=== PATIENT | male | born 1960 | race Caucasian/White ===

== ENCOUNTER 2020-11-21 16:20 | Inpatient (IN) | payer BC, OTHER ==
[~2020-11-21] VITALS: Ht 175.3 cm; Wt 81.8 kg
[2020-11-21] MEDS ORDERED: iohexol 300mg/ml 100ml inj. ONE (20:25)
[2020-11-21 20:33] LABS: BASOPHILS % (AUTO) 0.5 % (0-1); EOSINOPHILS # (AUTO) 0.1 X10'3 (0-0.9); EOSINOPHILS % (AUTO) 1.5 % (0-6); HEMATOCRIT 39.4 % (42.0-52.0); HEMOGLOBIN 13.6 g/dl (14.0-17.9); LYMPHOCYTES # (AUTO) 1.1 X10'3 (1.1-4.8); LYMPHOCYTES % (AUTO) 16.7 % (21-51); MEAN CORPUSCULAR HEMOGLOBIN 34.9 PG (27.0-31.0); MEAN CORPUSCULAR HGB CONC 34.4 g/dL (33.0-36.5); MEAN CORPUSCULAR VOLUME 101.3 FL (78-98); MONOCYTES % (AUTO) 14.7 % (2-12); NEUTROPHILS # (AUTO) 4.3 X10'3 (1.8-7.7); NEUTROPHILS % (AUTO) 66.6 % (42-75); PLATELET COUNT 237 X10'3 (140-440); RED BLOOD COUNT 3.89 X10'6 (4.70-6.10); RED CELL DISTRIBUTION WIDTH 12.9 % (11.5-14.5); WHITE BLOOD COUNT 6.5 X10'3 (4.5-11.0)
[2020-11-21 20:43] LABS: CLARITY,URINE SLIGHTLY CLOUDY (Clear); COLOR,URINE AMBER (Yellow); GLUCOSE, URINE NEGATIVE (Neg); KETONES,URINE NEGATIVE (Neg); LEUKOCYTE ESTERASE ,URINE NEGATIVE (Neg); NITRITES, URINE NEGATIVE (Neg); OCCULT BLOOD,URINE SMALL (Neg); PROTEIN,URINE TRACE mg/dl (Neg); UROBILINOGEN,URINE 0.2 E.U/dL (0.2-1.0)
[2020-11-21 20:49] LABS: PARTIAL THROMBOPLASTIN TIME 30 SECONDS (22-32)
[2020-11-21 20:51] LABS: ALANINE AMINOTRANSFERASE 482 U/L (12-78); ALBUMIN 3.1 G/DL (3.4-5.0); ALKALINE PHOSPHATASE 516 IU/L (46-116); ANION GAP 11 (8-16); ASPARTATE AMINO TRANSFERASE 256 U/L (10-37); BILIRUBIN,TOTAL 12.6 MG/DL (0.1-1.0); BLOOD UREA NITROGEN 11 MG/DL (7-18); BUN/CREATININE RATIO 13.3 (5.4-32.0); CALCIUM 8.9 MG/DL (8.5-10.1); CHLORIDE 93 MMOL/L (99-107); CREATININE 0.83 MG/DL (0.60-1.10); GLUCOSE 107 MG/DL (70-104); SODIUM 129 MMOL/L (135-145); TOTAL CARBON DIOXIDE 24.8 MMOL/L (24-32); eGFR > 90 ML/MIN
[2020-11-21 20:54] LABS: ALBUMIN/GLOBULIN RATIO 0.7 (1.1-1.5); POTASSIUM 3.8 MMOL/L (3.5-5.1); TOTAL PROTEIN 7.7 G/DL (6.4-8.2)
[2020-11-21] MEDS ORDERED: temazepam 15mg capsule PO PRN (21:00)
[2020-11-21 21:20] LABS: BACTERIA,URINE NONE SEEN /HPF (Neg); RBC,URINE 0-2 /HPF (0-2); SQUAMOUS EPITHELIAL CELL,UR FEW /LPF (FEW); UA COLLECTION TYPE VOIDED; WBC,URINE NONE SEEN /HPF (0-4)
[2020-11-21 21:26] LABS: LIPASE 7096 U/L (73-393)
[2020-11-21] MEDS ORDERED: morphine 2 MG/ML inj. syringe IV PRN ×2 (22:20)
[2020-11-21] MEDS ORDERED: acetaminophen 325mg tablet PO PRN ×2 (22:20)
[2020-11-21] MEDS ORDERED: ondansetron/PF 4mg/2ml inj IV PRN (22:20)
[2020-11-21] MEDS ORDERED: magnesium hydroxide 30ml (MOM) UD suspension PO PRN (22:20)
[2020-11-21] MEDS ORDERED: cloNIDine 0.1 MG/24 HOUR patch (7 day patch) TD SCH (22:20)
[2020-11-21] MEDS ORDERED: mag hydrox/Alum hydrox/simeth 30ml oral suspension PO PRN (22:20)
[2020-11-21] MEDS ORDERED: dextrose 50%-water 50ml dispensing syringe IV PRN (22:20)
[2020-11-21] MEDS ORDERED: ondansetron 4mg rapidly disintigrating tab PO PRN (22:20)
[2020-11-21] MEDS ORDERED: HYDROmorphone inj. 0.5 MG/0.5 ML DISP.SYRIN IV PRN (22:20)
[2020-11-21] MEDS ORDERED: diphenhydrAMINE 50 mg/ml inj IV PRN (22:20)
[2020-11-21] MEDS ORDERED: bisacodyl 10mg suppository rectal RC PRN (22:20)
[2020-11-21] MEDS ORDERED: HYDROcodone/acetaminophen 5mg/325mg tablet PO PRN (22:20)
[2020-11-21] MEDS ORDERED: LORazepam 2 mg/ml vial IV PRN (22:20)
[2020-11-21] MEDS ORDERED: acetaminophen 650mg rectal suppository RC PRN (22:20)
[2020-11-21] MEDS ORDERED: haloperidol 5mg tablet PO PRN (22:20)
[2020-11-21] MEDS ORDERED: diphenhydrAMINE 25mg capsule PO PRN (22:20)
[2020-11-21] MEDS ORDERED: haloperidol lactate 5mg/ml inj IM PRN (22:20)
[2020-11-21 22:40] LABS: HEMOGLOBIN A1C 5.1 % (4.5-6.2)
[2020-11-21 22:48] LABS: CREATINE KINASE 103 U/L (39-308); ETHANOL < 0.010 GM/DL (0.0-0.010); MAGNESIUM 1.8 MG/DL (1.5-2.4)
[2020-11-21 22:55] LABS: PHOSPHORUS 2.8 MG/DL (2.3-4.5)
[2020-11-21] MEDS: dextrose 5%-1/2 normal saline 1,000 ML IV SCH (23:27)
[2020-11-21 23:43] LABS: URINE AMPHETAMINE SCREEN NEGATIVE (Neg); URINE BARBITUATE SCREEN NEGATIVE (Neg); URINE BENZODIAZEPINES SCREEN NEGATIVE (Neg); URINE CANNABINOID SCREEN POSITIVE (Neg); URINE COCAINE SCREEN NEGATIVE (Neg); URINE METHADONE SCREEN NEGATIVE (Neg); URINE OPIATE SCREEN NEGATIVE (Neg); URINE PHENCYCLIDINE SCREEN NEGATIVE (Neg)
[2020-11-22 02:14] LABS: NEUTROPHILS % (MANUAL) 70 % (42-75); TOTAL CELLS COUNTED 100
[2020-11-22 02:15] LABS: BANDS% (MANUAL) 2 % (0-10); EOSINOPHILS % (MANUAL) 3 % (0-6); LYMPHOCYTES % (MANUAL) 14 % (21-51); METAMYLEOCYTES% (MANUAL) 1 % (0-0); MONOCYTES % (MANUAL) 10 % (2-12); PLATELET ESTIMATE NORMAL
[2020-11-22] MEDS: docusate sod 100mg capsule PO SCH ×2 (08:00→20:00)
[2020-11-22] MEDS: nicotine 21mg patch - 24 hr TD SCH (08:00)
[2020-11-22] MEDS: pantoprazole 40mg Tablet.DR PO SCH (08:04)
[2020-11-22] MEDS: heparin, porcine 5000 units/ml vial SQ SCH ×2 (08:04→20:00)
[2020-11-22 08:16] LABS: ABSOLUTE RETICS # 39700 /CUMM (23000-93000); BASOPHILS % (AUTO) 0.4 % (0-1); EOSINOPHILS # (AUTO) 0.1 X10'3 (0-0.9); EOSINOPHILS % (AUTO) 2.2 % (0-6); HEMOGLOBIN 13.7 g/dl (14.0-17.9); LYMPHOCYTES # (AUTO) 1.4 X10'3 (1.1-4.8); LYMPHOCYTES % (AUTO) 23.1 % (21-51); MEAN CORPUSCULAR HEMOGLOBIN 35.4 PG (27.0-31.0); MEAN CORPUSCULAR HGB CONC 35.1 g/dL (33.0-36.5); MEAN CORPUSCULAR VOLUME 100.7 FL (78-98); MEAN PLATELET VOLUME 7.5 FL (7.4-10.4); MONOCYTES # (AUTO) 0.8 X10'3 (0-0.9); MONOCYTES % (AUTO) 12.5 % (2-12); NEUTROPHILS # (AUTO) 3.7 X10'3 (1.8-7.7); NEUTROPHILS % (AUTO) 61.8 % (42-75); PLATELET COUNT 264 X10'3 (140-440); RED BLOOD COUNT 3.87 X10'6 (4.70-6.10); RED CELL DISTRIBUTION WIDTH 12.9 % (11.5-14.5); WHITE BLOOD COUNT 6.1 X10'3 (4.5-11.0)
[2020-11-22] MEDS: dextrose 5%-1/2 normal saline 1,000 ML IV SCH ×2 (08:20→18:20)
[2020-11-22 09:10] LABS: ALANINE AMINOTRANSFERASE 471 U/L (12-78); ALKALINE PHOSPHATASE 512 IU/L (46-116); ANION GAP 11 (8-16); ASPARTATE AMINO TRANSFERASE 258 U/L (10-37); BILIRUBIN,TOTAL 13.8 MG/DL (0.1-1.0); BLOOD UREA NITROGEN 8 MG/DL (7-18); BUN/CREATININE RATIO 11.8 (5.4-32.0); CALCIUM 8.6 MG/DL (8.5-10.1); CHLORIDE 99 MMOL/L (99-107); CREATININE 0.68 MG/DL (0.60-1.10); GLUCOSE 114 MG/DL (70-104); SODIUM 134 MMOL/L (135-145); TOTAL CARBON DIOXIDE 24.1 MMOL/L (24-32); eGFR > 90 ML/MIN
[2020-11-22] MEDS: folic acid 1mg/0.2ml inj IV SCH (09:10)
[2020-11-22] MEDS: thiamine inj. 100 MG in normal saline 100ml IV soln 100 ML IV SCH ×2 (09:10→10:00)
[2020-11-22 09:19] LABS: ALBUMIN/GLOBULIN RATIO 0.7 (1.1-1.5); C-REACTIVE PROTEIN 5.98 MG/DL (0.0-0.5); CHOLESTEROL 240 MG/DL (0-200); HDL CHOLESTEROL 10 MG/DL (35-60); LACTATE DEHYDROGENASE 215 U/L (85-227); LDL CHOLESTEROL 188 MG/DL (50-100); POTASSIUM 3.6 MMOL/L (3.5-5.1); TOTAL PROTEIN 7.3 G/DL (6.4-8.2); TRIGLYCERIDES 219 MG/DL (20-135)
[2020-11-22] MEDS ORDERED: folic acid 1mg/0.2ml inj IV ONE (11:25)
[2020-11-22] MEDS ORDERED: ONDA8TAB13 PO (12:55)
[2020-11-22] MEDS ORDERED: OMEP40CA21 PO (12:55)
[2020-11-22] MEDS ORDERED: MULT-384 PO (12:55)
[2020-11-22] MEDS ORDERED: ATEN25TA PO (12:55)
[2020-11-22] MEDS ORDERED: AMLO-93 PO (12:55)
[2020-11-22] MEDS ORDERED: ATEN-169 PO (13:57)
--- NOTE | 2020-11-22 20:00 | NUR ---
Patient in room PCU 3015. I have received report from ER and had the opportunity to ask questions and assume patient care. pt to unit on [facility] walked to bed
[2020-11-22 20:05] VITALS: BP 139/92
[2020-11-22 22:00] VITALS: BP 142/85
[2020-11-23 02:00] VITALS: BP 140/87
[2020-11-23] MEDS: dextrose 5%-1/2 normal saline 1,000 ML IV SCH ×2 (04:20→13:09)
[2020-11-23 06:00] VITALS: BP 129/75
--- NOTE | 2020-11-23 06:15 | NUR ---
Problems reprioritized. Patient report given, questions answered & plan of care reviewed with JAQUELINE fernandes.
[2020-11-23 06:20] LABS: EOSINOPHILS # (AUTO) 0.1 X10'3 (0-0.9); EOSINOPHILS % (AUTO) 3.3 % (0-6); HEMATOCRIT 37.2 % (42.0-52.0); LYMPHOCYTES # (AUTO) 1.3 X10'3 (1.1-4.8); MEAN CORPUSCULAR HEMOGLOBIN 35.3 PG (27.0-31.0); MEAN CORPUSCULAR HGB CONC 34.9 g/dL (33.0-36.5); MEAN CORPUSCULAR VOLUME 101.2 FL (78-98); MEAN PLATELET VOLUME 7.8 FL (7.4-10.4); MONOCYTES # (AUTO) 0.6 X10'3 (0-0.9); MONOCYTES % (AUTO) 14.7 % (2-12); NEUTROPHILS # (AUTO) 2.3 X10'3 (1.8-7.7); PLATELET COUNT 254 X10'3 (140-440); RED BLOOD COUNT 3.67 X10'6 (4.70-6.10); RED CELL DISTRIBUTION WIDTH 12.7 % (11.5-14.5); WHITE BLOOD COUNT 4.4 X10'3 (4.5-11.0)
[2020-11-23 06:47] LABS: ALANINE AMINOTRANSFERASE 450 U/L (12-78); ALBUMIN 2.6 G/DL (3.4-5.0); ALBUMIN/GLOBULIN RATIO 0.6 (1.1-1.5); ALKALINE PHOSPHATASE 472 IU/L (46-116); ANION GAP 11 (8-16); ASPARTATE AMINO TRANSFERASE 229 U/L (10-37); BILIRUBIN,TOTAL 14.4 MG/DL (0.1-1.0); BLOOD UREA NITROGEN 7 MG/DL (7-18); BUN/CREATININE RATIO 10.4 (5.4-32.0); CALCIUM 8.7 MG/DL (8.5-10.1); CHLORIDE 102 MMOL/L (99-107); CREATININE 0.67 MG/DL (0.60-1.10); GLUCOSE 116 MG/DL (70-104); POTASSIUM 3.6 MMOL/L (3.5-5.1); SODIUM 137 MMOL/L (135-145); TOTAL CARBON DIOXIDE 23.6 MMOL/L (24-32); TOTAL PROTEIN 6.7 G/DL (6.4-8.2); eGFR > 90 ML/MIN
[2020-11-23] MEDS: nicotine 21mg patch - 24 hr TD SCH (07:29)
[2020-11-23] MEDS: pantoprazole 40mg Tablet.DR PO SCH (07:29)
[2020-11-23] MEDS: docusate sod 100mg capsule PO SCH ×2 (07:29→19:56)
[2020-11-23] MEDS: heparin, porcine 5000 units/ml vial SQ SCH ×2 (07:30→20:05)
[2020-11-23] MEDS: folic acid 1mg/0.2ml inj IV SCH (07:33)
[2020-11-23 11:00] VITALS: BP 127/73
[2020-11-23] MEDS ORDERED: non-formulary drug (Ondansetron (Ondansetron Odt) 1 TAB) PO PRN (11:15)
[2020-11-23] MEDS: atenolol 25mg tablet PO SCH (11:15)
[2020-11-23] MEDS: amLODIPine 5mg tablet PO SCH (11:19)
[2020-11-23] MEDS: lisinopril 20mg tablet PO SCH (11:20)
--- NOTE | 2020-11-23 13:00 | NUR ---
PT REQUESTED THAT HEALTH RECORDS TO BE SENT TO [facility] OFFICE. MEDICAL RELEASE PAPERWORK SENT TO MEDICAL RECORDS. INFORMATION WILL NOT BE SENT UNTIL PT IS DC. ENSURE THAT RN DURING DC CHECKS IN WITH MEDICAL RECORDS TO SEND RECORDS TO MD OFFICES.
[2020-11-23 15:00] VITALS: BP 132/86
--- NOTE | 2020-11-23 15:30 | NUR ---
SPOKE WITH ULTRASOUND REGARDING PT ABD US. ULTRASOUND WAS UNAWARE THAT PT HAD ORDERS FOR AN ABD US. PT WILL NOW HAVE ABD US IN AM. PT CAN EAT UNTIL 0000 THEN NPO.
[2020-11-23 18:00] VITALS: BP 135/85
--- NOTE | 2020-11-23 18:30 | NUR ---
Patient in room PCU 3015. I have received report from PAULETTE and had the opportunity to ask questions and assume patient care.
[2020-11-23 22:00] VITALS: BP 141/84
[2020-11-23] MEDS ORDERED: LORazepam 1 MG tablet PO PRN (22:20)
[2020-11-23] MEDS ORDERED: LORazepam 2 mg/ml vial IV PRN (22:20)
[2020-11-24] MEDS: dextrose 5%-1/2 normal saline 1,000 ML IV SCH ×4 (00:20→23:18)
[2020-11-24 02:00] VITALS: BP 138/83
--- NOTE | 2020-11-24 04:56 | NUR ---
Patient in room PCU 3015. I have received report from Sigrid PARSONS and had the opportunity to ask questions and assume patient care.
[2020-11-24 06:00] VITALS: BP 138/78
--- NOTE | 2020-11-24 06:21 | NUR ---
Problems reprioritized. Patient report given, questions answered & plan of care reviewed with PAULETTE.
[2020-11-24 06:49] LABS: BASOPHILS % (AUTO) 0.6 % (0-1); EOSINOPHILS # (AUTO) 0.1 X10'3 (0-0.9); EOSINOPHILS % (AUTO) 2.7 % (0-6); HEMATOCRIT 38.5 % (42.0-52.0); HEMOGLOBIN 13.4 g/dl (14.0-17.9); LYMPHOCYTES # (AUTO) 1.6 X10'3 (1.1-4.8); LYMPHOCYTES % (AUTO) 30.1 % (21-51); MEAN CORPUSCULAR HEMOGLOBIN 35.5 PG (27.0-31.0); MEAN CORPUSCULAR HGB CONC 34.8 g/dL (33.0-36.5); MEAN CORPUSCULAR VOLUME 102.1 FL (78-98); MEAN PLATELET VOLUME 8.1 FL (7.4-10.4); MONOCYTES # (AUTO) 0.6 X10'3 (0-0.9); MONOCYTES % (AUTO) 10.4 % (2-12); NEUTROPHILS # (AUTO) 3.1 X10'3 (1.8-7.7); NEUTROPHILS % (AUTO) 56.2 % (42-75); PLATELET COUNT 295 X10'3 (140-440); RED BLOOD COUNT 3.77 X10'6 (4.70-6.10); RED CELL DISTRIBUTION WIDTH 13.2 % (11.5-14.5); WHITE BLOOD COUNT 5.4 X10'3 (4.5-11.0)
[2020-11-24] MEDS: pantoprazole 40mg Tablet.DR PO SCH (07:30)
[2020-11-24] MEDS: docusate sod 100mg capsule PO SCH ×2 (07:32→20:00)
[2020-11-24] MEDS: amLODIPine 5mg tablet PO SCH (07:32)
[2020-11-24] MEDS: thiamine inj. 100 MG in normal saline 100ml IV soln 100 ML IV SCH (07:32)
[2020-11-24] MEDS: folic acid 1mg/0.2ml inj IV SCH (07:32)
[2020-11-24] MEDS: atenolol 25mg tablet PO SCH (07:32)
[2020-11-24] MEDS: heparin, porcine 5000 units/ml vial SQ SCH ×2 (07:33→20:41)
[2020-11-24] MEDS: multivitamins, therapeutics tablet PO SCH (07:33)
[2020-11-24] MEDS: nicotine 21mg patch - 24 hr TD SCH (07:33)
[2020-11-24] MEDS: lisinopril 20mg tablet PO SCH (07:33)
[2020-11-24 07:40] LABS: ALANINE AMINOTRANSFERASE 437 U/L (12-78); ALBUMIN 2.8 G/DL (3.4-5.0); ALKALINE PHOSPHATASE 504 IU/L (46-116); ANION GAP 10 (8-16); BILIRUBIN,TOTAL 16.1 MG/DL (0.1-1.0); BLOOD UREA NITROGEN 8 MG/DL (7-18); CALCIUM 8.8 MG/DL (8.5-10.1); CHLORIDE 101 MMOL/L (99-107); SODIUM 137 MMOL/L (135-145); TOTAL CARBON DIOXIDE 26.3 MMOL/L (24-32)
[2020-11-24 07:52] LABS: ALBUMIN/GLOBULIN RATIO 0.7 (1.1-1.5); ASPARTATE AMINO TRANSFERASE 203 U/L (10-37); BUN/CREATININE RATIO 11.3 (5.4-32.0); CREATININE 0.71 MG/DL (0.60-1.10); GLUCOSE 110 MG/DL (70-104); POTASSIUM 3.7 MMOL/L (3.5-5.1); eGFR > 90 ML/MIN
[2020-11-24] MEDS ORDERED: non-formulary drug (Omeprazole (Prilosec) 1 CAP) PO SCH (08:00)
[2020-11-24 11:00] VITALS: BP 131/85
[2020-11-24 15:00] VITALS: BP 144/89
[2020-11-24 15:03] LABS: ACETAMINOPHEN < 2.0 UG/ML (10-30)
[2020-11-24 15:32] LABS: LIPASE 5002 U/L (73-393)
--- NOTE | 2020-11-24 17:29 | NUR ---
PT REFUSED BG CHECKS. STATED NO LONGER NEEDS IT. PAGED DR. THOMAS TO GET DC'D. NO ANSWER. WILL F/U
--- NOTE | 2020-11-24 18:27 | NUR ---
Patient in room PCU 3015. I have received report from JAQUELINE Matta and had the opportunity to ask questions and assume patient care.
[2020-11-25 06:00] VITALS: BP 136/72
--- NOTE | 2020-11-25 06:05 | NUR ---
Problems reprioritized. Patient report given, questions answered & plan of care reviewed with JAQUELINE Matta.
[2020-11-25] MEDS: dextrose 5%-1/2 normal saline 1,000 ML IV SCH ×2 (06:20→16:25)
[2020-11-25 07:19] LABS: BASOPHILS # (AUTO) 0.1 X10'3 (0-0.2); BASOPHILS % (AUTO) 1.9 % (0-1); EOSINOPHILS # (AUTO) 0.1 X10'3 (0-0.9); HEMATOCRIT 35.9 % (42.0-52.0); HEMOGLOBIN 12.6 g/dl (14.0-17.9); LYMPHOCYTES # (AUTO) 1.1 X10'3 (1.1-4.8); MEAN CORPUSCULAR HEMOGLOBIN 35.2 PG (27.0-31.0); MEAN CORPUSCULAR HGB CONC 35.1 g/dL (33.0-36.5); MEAN CORPUSCULAR VOLUME 100.4 FL (78-98); MEAN PLATELET VOLUME 7.9 FL (7.4-10.4); MONOCYTES # (AUTO) 0.6 X10'3 (0-0.9); MONOCYTES % (AUTO) 11.5 % (2-12); NEUTROPHILS % (AUTO) 61.6 % (42-75); PLATELET COUNT 311 X10'3 (140-440); RED BLOOD COUNT 3.57 X10'6 (4.70-6.10); RED CELL DISTRIBUTION WIDTH 12.8 % (11.5-14.5); WHITE BLOOD COUNT 4.9 X10'3 (4.5-11.0)
[2020-11-25 07:32] LABS: ALANINE AMINOTRANSFERASE 406 U/L (12-78); ALBUMIN 2.5 G/DL (3.4-5.0); ALBUMIN/GLOBULIN RATIO 0.6 (1.1-1.5); ALKALINE PHOSPHATASE 481 IU/L (46-116); ANION GAP 8 (8-16); ASPARTATE AMINO TRANSFERASE 196 U/L (10-37); BILIRUBIN,TOTAL 16.8 MG/DL (0.1-1.0); BLOOD UREA NITROGEN 6 MG/DL (7-18); BUN/CREATININE RATIO 8.7 (5.4-32.0); CALCIUM 8.4 MG/DL (8.5-10.1); CHLORIDE 103 MMOL/L (99-107); CREATININE 0.69 MG/DL (0.60-1.10); GLUCOSE 114 MG/DL (70-104); POTASSIUM 3.7 MMOL/L (3.5-5.1); SODIUM 136 MMOL/L (135-145); TOTAL CARBON DIOXIDE 24.6 MMOL/L (24-32); TOTAL PROTEIN 6.5 G/DL (6.4-8.2); eGFR > 90 ML/MIN
[2020-11-25] MEDS: thiamine inj. 100 MG in normal saline 100ml IV soln 100 ML IV SCH (07:39)
[2020-11-25] MEDS: multivitamins, therapeutics tablet PO SCH (07:40)
[2020-11-25] MEDS: folic acid 1mg/0.2ml inj IV SCH (07:40)
[2020-11-25] MEDS: pantoprazole 40mg Tablet.DR PO SCH (07:41)
[2020-11-25] MEDS: lisinopril 20mg tablet PO SCH (07:41)
[2020-11-25] MEDS: amLODIPine 5mg tablet PO SCH (07:41)
[2020-11-25] MEDS: atenolol 25mg tablet PO SCH (07:42)
[2020-11-25] MEDS: nicotine 21mg patch - 24 hr TD SCH (07:42)
[2020-11-25] MEDS: docusate sod 100mg capsule PO SCH ×2 (07:42→20:00)
[2020-11-25] MEDS: heparin, porcine 5000 units/ml vial SQ SCH ×2 (07:43→20:16)
[2020-11-25 10:22] LABS: LIPASE 2675 U/L (73-393)
[2020-11-25 11:00] VITALS: BP 139/92
[2020-11-25 15:00] VITALS: BP 146/94
[2020-11-25 18:00] VITALS: BP 159/99
--- NOTE | 2020-11-25 18:00 | NUR ---
Patient in room PCU 3019. I have received report from Lori PARSONS and had the opportunity to ask questions and assume patient care.
[2020-11-25] MEDS ORDERED: LORazepam 2 mg/ml vial IV PRN (22:20)
[2020-11-25] MEDS ORDERED: LORazepam 1 MG tablet PO PRN (22:20)
[2020-11-26] VITALS (17 sets, daily range): BP systolic 118–198; BP diastolic 68–99
[2020-11-26] MEDS: dextrose 5%-1/2 normal saline 1,000 ML IV SCH ×3 (04:00→22:20)
--- NOTE | 2020-11-26 06:18 | NUR ---
Patient in room PCU 3019. I have received report from Mia Vallejo and had the opportunity to ask questions and assume patient care.
--- NOTE | 2020-11-26 06:24 | NUR ---
Problems reprioritized. Patient report given, questions answered & plan of care reviewed with Jaspal PARSONS.
[2020-11-26 07:14] LABS: RED BLOOD COUNT 3.62 X10'6 (4.70-6.10)
[2020-11-26 07:19] LABS: HEMATOCRIT 36.3 % (42.0-52.0); HEMOGLOBIN 12.8 g/dl (14.0-17.9); MEAN CORPUSCULAR HEMOGLOBIN 35.4 PG (27.0-31.0); MEAN CORPUSCULAR HGB CONC 35.2 g/dL (33.0-36.5); MEAN CORPUSCULAR VOLUME 100.5 FL (78-98); MEAN PLATELET VOLUME 7.7 FL (7.4-10.4); PLATELET COUNT 331 X10'3 (140-440); RED CELL DISTRIBUTION WIDTH 12.8 % (11.5-14.5); WHITE BLOOD COUNT 4.9 X10'3 (4.5-11.0)
[2020-11-26 07:42] LABS: PLATELET ESTIMATE NORMAL; TOTAL CELLS COUNTED 100
[2020-11-26 07:46] LABS: ALANINE AMINOTRANSFERASE 403 U/L (12-78); ALBUMIN 2.5 G/DL (3.4-5.0); ALKALINE PHOSPHATASE 508 IU/L (46-116); ANION GAP 8 (8-16); BILIRUBIN,TOTAL 18.9 MG/DL (0.1-1.0); BLOOD UREA NITROGEN 5 MG/DL (7-18); CALCIUM 8.5 MG/DL (8.5-10.1); CHLORIDE 105 MMOL/L (99-107); SODIUM 140 MMOL/L (135-145); TOTAL CARBON DIOXIDE 26.6 MMOL/L (24-32)
[2020-11-26 07:47] LABS: ALBUMIN/GLOBULIN RATIO 0.6 (1.1-1.5); ASPARTATE AMINO TRANSFERASE 196 U/L (10-37); BUN/CREATININE RATIO 6.4 (5.4-32.0); CREATININE 0.78 MG/DL (0.60-1.10); GLUCOSE 111 MG/DL (70-104); LIPASE 1774 U/L (73-393); POTASSIUM 4.1 MMOL/L (3.5-5.1); TOTAL PROTEIN 6.6 G/DL (6.4-8.2); eGFR > 90 ML/MIN
[2020-11-26] MEDS: amLODIPine 5mg tablet PO SCH (07:49)
[2020-11-26] MEDS: lisinopril 20mg tablet PO SCH (07:49)
[2020-11-26] MEDS: pantoprazole 40mg Tablet.DR PO SCH (07:49)
[2020-11-26] MEDS: multivitamins, therapeutics tablet PO SCH (07:49)
[2020-11-26] MEDS: atenolol 25mg tablet PO SCH (07:49)
[2020-11-26] MEDS: thiamine inj. 100 MG in normal saline 100ml IV soln 100 ML IV SCH (07:50)
[2020-11-26] MEDS: nicotine 21mg patch - 24 hr TD SCH (07:55)
[2020-11-26] MEDS: docusate sod 100mg capsule PO SCH ×2 (07:55→20:00)
[2020-11-26] MEDS: folic acid 1mg/0.2ml inj IV SCH (08:55)
--- NOTE | 2020-11-26 10:25 | NUR ---
Initial: Pt admitted w/ abdominal pains and having poor appetite for a few weeks per EMR. Noted pt has hx of EtOH abuse, usually drinks a 12 pack most days. Pt w/ some nausea and intermittent abd pain, but no vomiting or diarrhea. LMB 11/24. Avg intake 30% of clear liquid diet not meeting needs. Discussed w/ RN about advancing to regular diet if MD agreeable. Noted liver enzymes trending down but bilirubin is uptrending. Will continue to monitor. Recommend 1. Ensure Clear TID to provide 720kcals and 24g protein if consumed 100% 2. Advance to Regular diet per MD order 3. Routine Thiamine and Folic acid supplementation 4. Bowel care per rx 5. Scaled weight Addendum: 11/26/20 at [address] Amended: Links added.
[2020-11-26] MEDS: NUT.TX.IMPAIRED DIGEST FXN (Ensure Clear) 237 ML PO SCH ×2 (13:00→18:00)
[2020-11-26] MEDS ORDERED: glucagon, human recombinant 1mg kit ONE (13:07)
[2020-11-26] MEDS ORDERED: fentaNYL/PF 50MCG/1 ML 2ML syringe ONE ×2 (13:07→15:26)
[2020-11-26] MEDS ORDERED: levoFLOXACIN-Levaquin 500mg/D5 100 ML IV ONE (13:07)
[2020-11-26] MEDS ORDERED: MIDAZolam 1 MG/ML 5ML VIAL ONE (13:07)
[2020-11-26] MEDS ORDERED: LIDOcaine Viscous 15ml cup ONE (13:08)
[2020-11-26] MEDS ORDERED: iohexol 300 MG/1 ML 50ml polymer ONE (13:08)
[2020-11-26] MEDS ORDERED: diphenhydrAMINE 50 mg/ml inj ONE (14:19)
--- NOTE | 2020-11-26 15:35 | NUR ---
Patient in room PCU 3019. I have received report from JAQUELINE MOODY FROM TELE and had the opportunity to ask questions and assume patient care.
--- NOTE | 2020-11-26 15:37 | NUR ---
Problems reprioritized. Patient report given, questions answered & plan of care reviewed with Jayleen Vallejo.
--- NOTE | 2020-11-26 18:06 | NUR ---
Problems reprioritized. Patient report given, questions answered & plan of care reviewed with JAQUELINE GORDON.
--- NOTE | 2020-11-26 19:04 | NUR ---
Patient in room STEFAN 360. I have received report from JAQUELINE Clemens and had the opportunity to ask questions and assume patient care.
[2020-11-26] MEDS: cyclobenzaprine 10mg tablet PO PRN (22:49)
[2020-11-27 00:59] VITALS: BP 175/93
[2020-11-27] MEDS ORDERED: morphine 2 MG/ML inj. syringe IV PRN ×2 (01:25)
[2020-11-27] MEDS ORDERED: LORazepam 2 mg/ml vial IV PRN (01:25)
--- NOTE | 2020-11-27 06:11 | NUR ---
Problems reprioritized. Patient report given, questions answered & plan of care reviewed with JAQUELINE Feng.
--- NOTE | 2020-11-27 06:30 | NUR ---
Patient in room STEFAN 360. I have received report from Mayito PARSONS and had the opportunity to ask questions and assume patient care.
[2020-11-27 08:00] VITALS: BP 158/85
[2020-11-27] MEDS: NUT.TX.IMPAIRED DIGEST FXN (Ensure Clear) 237 ML PO SCH ×3 (08:00→18:00)
[2020-11-27] MEDS: nicotine 21mg patch - 24 hr TD SCH (08:00)
[2020-11-27] MEDS: docusate sod 100mg capsule PO SCH ×2 (08:00→19:35)
[2020-11-27] MEDS: dextrose 5%-1/2 normal saline 1,000 ML IV SCH ×2 (08:20→14:24)
[2020-11-27] MEDS: multivitamins, therapeutics tablet PO SCH (08:24)
[2020-11-27] MEDS: lisinopril 20mg tablet PO SCH (08:25)
[2020-11-27] MEDS: HYDROcodone/acetaminophen 10/325mg tab PO PRN ×2 (08:26→13:08)
[2020-11-27] MEDS: atenolol 25mg tablet PO SCH (08:26)
[2020-11-27] MEDS: pantoprazole 40mg Tablet.DR PO SCH (08:26)
[2020-11-27] MEDS: amLODIPine 5mg tablet PO SCH (08:27)
[2020-11-27] MEDS: thiamine inj. 100 MG in normal saline 100ml IV soln 100 ML IV SCH (08:28)
[2020-11-27] MEDS: folic acid 1mg/0.2ml inj IV SCH (08:28)
[2020-11-27] MEDS: heparin, porcine 5000 units/ml vial SQ SCH ×2 (08:29→19:37)
[2020-11-27 09:06] LABS: ALANINE AMINOTRANSFERASE 474 U/L (12-78); ALBUMIN 2.8 G/DL (3.4-5.0); ALKALINE PHOSPHATASE 623 IU/L (46-116); ANION GAP 10 (8-16); BILIRUBIN,TOTAL 18.3 MG/DL (0.1-1.0); BLOOD UREA NITROGEN 5 MG/DL (7-18); CALCIUM 8.5 MG/DL (8.5-10.1); CHLORIDE 99 MMOL/L (99-107); SODIUM 134 MMOL/L (135-145); TOTAL CARBON DIOXIDE 25.3 MMOL/L (24-32)
[2020-11-27 09:22] LABS: BASOPHILS # (AUTO) 0.1 X10'3 (0-0.2); BASOPHILS % (AUTO) 0.9 % (0-1); EOSINOPHILS # (AUTO) 0.1 X10'3 (0-0.9); EOSINOPHILS % (AUTO) 1.5 % (0-6); HEMATOCRIT 38.8 % (42.0-52.0); HEMOGLOBIN 13.4 g/dl (14.0-17.9); LYMPHOCYTES # (AUTO) 1.1 X10'3 (1.1-4.8); LYMPHOCYTES % (AUTO) 16.3 % (21-51); MEAN CORPUSCULAR HGB CONC 34.6 g/dL (33.0-36.5); MEAN CORPUSCULAR VOLUME 101.2 FL (78-98); MEAN PLATELET VOLUME 8.2 FL (7.4-10.4); MONOCYTES # (AUTO) 0.7 X10'3 (0-0.9); MONOCYTES % (AUTO) 10.7 % (2-12); NEUTROPHILS # (AUTO) 4.8 X10'3 (1.8-7.7); NEUTROPHILS % (AUTO) 70.6 % (42-75); PLATELET COUNT 382 X10'3 (140-440); RED BLOOD COUNT 3.84 X10'6 (4.70-6.10); RED CELL DISTRIBUTION WIDTH 13.1 % (11.5-14.5); WHITE BLOOD COUNT 6.8 X10'3 (4.5-11.0)
[2020-11-27 09:28] LABS: ALBUMIN/GLOBULIN RATIO 0.6 (1.1-1.5); ASPARTATE AMINO TRANSFERASE 273 U/L (10-37); BUN/CREATININE RATIO 6.8 (5.4-32.0); CREATININE 0.73 MG/DL (0.60-1.10); GLUCOSE 138 MG/DL (70-104); POTASSIUM 3.4 MMOL/L (3.5-5.1); TOTAL PROTEIN 7.4 G/DL (6.4-8.2); eGFR > 90 ML/MIN
[2020-11-27 11:00] VITALS: BP 132/75
[2020-11-27] MEDS: levoFLOXACIN 500mg tablet PO SCH (13:04)
[2020-11-27] MEDS ORDERED: potassium Cl 20 mEq SR tablet PO PRN (14:35)
[2020-11-27] MEDS ORDERED: potassium Cl 40MEQ/1/2NS 520ml 520 ML IV PRN (14:35)
[2020-11-27] MEDS ORDERED: magnesium Cl slow-release 64mg tablet PO PRN (14:35)
[2020-11-27] MEDS ORDERED: magnesium 4gm in 100ml NS 100 ML IV PRN (14:35)
[2020-11-27] MEDS: potassium Cl 20 mEq SR tablet PO PRN ×2 (15:14→19:34)
[2020-11-27 18:00] VITALS: BP 167/80
--- NOTE | 2020-11-27 18:30 | NUR ---
Problems reprioritized. Patient report given, questions answered & plan of care reviewed with
--- NOTE | 2020-11-27 18:57 | NUR ---
Patient in room STEFAN 360. I have received report from Ping PARSONS and had the opportunity to ask questions and assume patient care. Pt washing hands at the sink. Has no signs of distress, will continue to monitor.
[2020-11-27] MEDS: lactobacillus rhamnosus 10,000 MMU CELLS/CAPSULE PO SCH (19:34)
[2020-11-27] MEDS: cyclobenzaprine 10mg tablet PO PRN (19:35)
[2020-11-27] MEDS: K and/or MAG REPLACEMENT MC SCH (19:38)
[2020-11-27 23:47] VITALS: BP 153/97
[2020-11-28] MEDS: dextrose 5%-1/2 normal saline 1,000 ML IV SCH ×2 (00:34→00:49)
[2020-11-28 06:02] LABS: HEMATOCRIT 34.1 % (42.0-52.0); HEMOGLOBIN 12.1 g/dl (14.0-17.9); MEAN CORPUSCULAR HEMOGLOBIN 35.6 PG (27.0-31.0); MEAN CORPUSCULAR HGB CONC 35.5 g/dL (33.0-36.5); MEAN CORPUSCULAR VOLUME 100.4 FL (78-98); MEAN PLATELET VOLUME 8.1 FL (7.4-10.4); PLATELET COUNT 346 X10'3 (140-440); RED CELL DISTRIBUTION WIDTH 12.9 % (11.5-14.5); WHITE BLOOD COUNT 5.7 X10'3 (4.5-11.0)
--- NOTE | 2020-11-28 06:14 | NUR ---
Problems reprioritized. Patient report given, questions answered & plan of care reviewed with Ping PARSONS.
[2020-11-28 06:23] LABS: ALANINE AMINOTRANSFERASE 399 U/L (12-78); ALBUMIN 2.4 G/DL (3.4-5.0); ALKALINE PHOSPHATASE 553 IU/L (46-116); ANION GAP 5 (8-16); BILIRUBIN,TOTAL 14.3 MG/DL (0.1-1.0); BLOOD UREA NITROGEN 4 MG/DL (7-18); CALCIUM 8.6 MG/DL (8.5-10.1); CHLORIDE 103 MMOL/L (99-107); LIPASE 1488 U/L (73-393); MAGNESIUM 1.6 MG/DL (1.5-2.4); SODIUM 135 MMOL/L (135-145); TOTAL CARBON DIOXIDE 26.7 MMOL/L (24-32)
[2020-11-28 06:24] LABS: ALBUMIN/GLOBULIN RATIO 0.6 (1.1-1.5); ASPARTATE AMINO TRANSFERASE 203 U/L (10-37); BUN/CREATININE RATIO 5.3 (5.4-32.0); CREATININE 0.76 MG/DL (0.60-1.10); GLUCOSE 111 MG/DL (70-104); POTASSIUM 3.8 MMOL/L (3.5-5.1); TOTAL PROTEIN 6.5 G/DL (6.4-8.2); eGFR > 90 ML/MIN
[2020-11-28 06:59] LABS: TOTAL CELLS COUNTED 100
[2020-11-28 07:00] LABS: PLATELET ESTIMATE NORMAL
[2020-11-28 07:04] LABS: STOMATOCYTES 1+; TARGET CELLS 1+
[2020-11-28 08:00] VITALS: BP 148/89
[2020-11-28] MEDS: docusate sod 100mg capsule PO SCH (08:00)
[2020-11-28] MEDS: nicotine 21mg patch - 24 hr TD SCH (08:00)
[2020-11-28] MEDS: NUT.TX.IMPAIRED DIGEST FXN (Ensure Clear) 237 ML PO SCH ×2 (08:00→13:00)
[2020-11-28] MEDS: pantoprazole 40mg Tablet.DR PO SCH (08:07)
[2020-11-28] MEDS: lactobacillus rhamnosus 10,000 MMU CELLS/CAPSULE PO SCH (08:07)
[2020-11-28] MEDS: amLODIPine 5mg tablet PO SCH (08:08)
[2020-11-28 08:09] VITALS: BP_SYST 148
[2020-11-28] MEDS: thiamine inj. 100 MG in normal saline 100ml IV soln 100 ML IV SCH (08:09)
[2020-11-28] MEDS: atenolol 25mg tablet PO SCH (08:09)
[2020-11-28] MEDS: lisinopril 20mg tablet PO SCH (08:09)
[2020-11-28] MEDS: multivitamins, therapeutics tablet PO SCH (08:09)
[2020-11-28] MEDS: folic acid 1mg/0.2ml inj IV SCH (08:09)
[2020-11-28] MEDS: heparin, porcine 5000 units/ml vial SQ SCH (08:10)
[2020-11-28] MEDS: K and/or MAG REPLACEMENT MC SCH (08:11)
[2020-11-28] MEDS: levoFLOXACIN 500mg tablet PO SCH (11:42)
[2020-11-28] MEDS: HYDROcodone/acetaminophen 10/325mg tab PO PRN (11:43)
--- NOTE | 2020-11-28 12:43 | NUR ---
Reassessment: Pt continues on clear liquid diet and PO intake has improved to 100% since 11/27, previously with 25% PO intake. Unable to meet estimated nutrient needs on current diet order. Physician approved Ensure Clear TID, to begin at lunch today, d/w dietary. LBM 11/27. No additional appropriate nutrition interventions at this time in view of current diet order. Will continue to follow closely and make recommendations as appropriate. Recommend 1. Advance to low fat diet as medically indicated in view of elevated lipid panel 2. Ensure Clear TID while on clear liquid diet; discontinue upon diet advancement 3. Routine Thiamine, Folic acid, and MVI given EtOH hx with elevated MCV 4. Bowel care per rx 5. Scaled weight this admit; weekly scaled weights thereafter Addendum: 11/28/20 at [address] Amended: Links added.
[2020-11-28] MEDS ORDERED: LEVO500T89 PO (14:46)
--- NOTE | 2020-11-28 15:53 | NUR ---
Patient educated on diet, follow-up, worsening symptoms, and medications. Medications sent to [facility]. IV removed and canula intact. Patient taken down by PCT.
== END 2020-11-28 15:35 | disposition home or self-care (01) | DRG 444 ==
LOC: ER 16:21 → ED HOLD 22:18 → PCU 3S 11-22 20:00 → SUR 3N 11-26 16:30
PROVIDERS: ADMIT Family Medicine; ATTEND Internal Medicine
PROC: BW211ZZ Computerized Tomography (CT Scan) of Abdomen and Pelvis using Low Osmolar Contrast (ICD-10-PCS; 2020-11-21)
PROC: 0F758DZ Dilation of Right Hepatic Duct with Intraluminal Device, Via Natural or Artificial Opening Endoscopic (ICD-10-PCS; principal; 2020-11-26)
PROC: 0FB98ZX Excision of Common Bile Duct, Via Natural or Artificial Opening Endoscopic, Diagnostic (ICD-10-PCS; 2020-11-26)
DX: K83.1 Obstruction of bile duct (principal); K85.20 Alcohol induced acute pancreatitis without necrosis or infection; E87.1 Hypo-osmolality and hyponatremia; K86.1 Other chronic pancreatitis; E86.0 Dehydration; R74.01 Elevation of levels of liver transaminase levels; F10.20 Alcohol dependence, uncomplicated; E80.6 Other disorders of bilirubin metabolism; F12.90 Cannabis use, unspecified, uncomplicated; F17.210 Nicotine dependence, cigarettes, uncomplicated; I10 Essential (primary) hypertension; K70.10 Alcoholic hepatitis without ascites; K76.0 Fatty (change of) liver, not elsewhere classified; Z71.51 Drug abuse counseling and surveillance of drug abuser; Z71.6 Tobacco abuse counseling; Z79.899 Other long term (current) drug therapy
CPT/HCPCS: 36415; 43261; 43262; 43263; 43274; 43277; 74177; 76700; 80053; 80061; 80305; 80320; 80329; 81001; 82378; 82550; 82948; 82977; 83036; 83615; 83690; 83735; 83880; 84100; 84443; 85007; 85025; 85045; 85610; 85651; 85730; 86140; 86301; 87081; 99152; 99153; 99285; A4620; C1726; C1769; C2625; C8901; G0378; J1200; J1610; J1644; J1956; J2250; J2270; J2405; J3010; J3411; J3490; J7040; Q9967